=== PATIENT | male | born 1950 | race Caucasian/White ===

== ENCOUNTER 2021-10-07 06:00 | Outpatient (RCR) | payer OTHER, SELFPAY | END 2021-10-27 23:59 | disposition home or self-care (01) | LOC: SPT 06:00 | PROVIDERS: Family Provider Internal Medicine; PCP Internal Medicine; Referring Provider Family Medicine; Visit Provider Family Medicine | DX: M17.11 Unilateral primary osteoarthritis, right knee (principal) | CPT/HCPCS: 97110; 97161; G0283 ==

== ENCOUNTER 2021-10-28 06:00 | Outpatient (RCR) | payer OTHER, SELFPAY | END 2021-11-27 23:59 | disposition home or self-care (01) | LOC: SPT 06:00 | PROVIDERS: PCP Internal Medicine; Referring Provider Family Medicine; Visit Provider Family Medicine | DX: M17.11 Unilateral primary osteoarthritis, right knee (principal) | CPT/HCPCS: 97110; 97161; G0283 ==

== ENCOUNTER → 2023-02-07 15:13 | Outpatient (BNVA) | payer OTHER, SELFPAY | PROVIDERS: PCP Internal Medicine; Referring Provider Family Medicine; Visit Provider Internal Medicine Cardiovascular Disease | DX: R07.89 Other chest pain (principal); R06.02 Shortness of breath; E11.9 Type 2 diabetes mellitus without complications; Z79.84 Long term (current) use of oral hypoglycemic drugs; E78.5 Hyperlipidemia, unspecified; I10 Essential (primary) hypertension; G47.33 Obstructive sleep apnea (adult) (pediatric); Z87.891 Personal history of nicotine dependence | CPT/HCPCS: 99204 ==

== ENCOUNTER 2023-02-26 08:49 | Outpatient (CLI) | payer OTHER, SELFPAY ==
[2023-02-26 09:34] VITALS: BMI 40.4
--- NOTE | 2023-02-26 09:37 | ECG_ITS ---
[facility] Test Date: 2023-02-26 Pat Name: Mercedez Mcfarlane Department: Room: Gender: Male Bus Attendant: Lana Anne : 1950 Requested By: Alvaro Brown Order Number: [id number] Cj MD: Mike Casper M.D. Interpretive Statements NAME OF STUDY: EXERCISE SESTAMIBI STRESS TEST INDICATION: [Chest Pain; Shortness of Breath, ] EXERCISE DATA: The patient was exercised by Solomon protocol. Baseline heart rate was 61 beats per minute. Baseline blood pressure was 128/77 millimeters of mercury. Target heart rate was 125 beats per minute. Maximum heart rate achieved was 126 which was 100% of the target heart rate. Maximum blood pressure was 201/114 millimeters of mercury. Total exercise time was 5 minutes 49 seconds. Maximum METs achieved was 7. The reason for ending the test was maximal effort achieved. The patient complained of shortness of breath during the stress test, which then resolved at the end of the test. ELECTROCARDIOGRAM: BASELINE: Showed sinus rhythm, normal axis, no significant ST-T changes at the baseline noted. [] EXERCISE: At the peak exercise level, [] No significant ST-T changes suggestive of ischemia noted. [] RECOVERY: During the recovery period, heart rate dropped appropriately. No significant ST-T changes in the recovery suggestive of ischemia noted. [] CONCLUSION: 1. Exercise capacity is fair. 2. Heart rate response was appropriate. 3. Blood pressure response was hypertensive. 4. Symptoms not suggestive of ischemia. 5. Electrocardiogram portion of the stress test was not suggestive of ischemia. 6. Nuclear scan will be documented separately. Electronically Signed On 03-03-2023 20:52:29 CDT by Mike Casper M.D. [id number]
--- NOTE | 2023-02-26 09:37 | NMCV_ITS ---
NM arpit perf SPECT r/s* [id number] Mercedez Mcfarlane Age: 72 Gender: M : 1950 Exam Date: 02/26/2023 09:37 Ordering Phys: Alvaro Brown MD ([email or web address]) Technologist: KALLI Bar Exam Location: [facility] Indications: CORONARY ANGIOPLASTY STATUS STRESS TEST Please see separate stress test report in [facility] for full findings IMAGE PROTOCOL Rest/Stress 1 Exercise Day Radiopharmaceutical Dose (mCi) Administration Site Administered by Rest: Tc-99m 7.7 IV KALLI Bar Sestamibi Stress:Tc-99m 33.0 IV KALLI Worthy Sestamibi Rest: 26-Feb-2023 60 Discovery 630 Stress: 26-Feb-2023 15 Discovery 630 Radiopharmaceutical was injected at 85 % maximum heart rate. Supine position only as patient was unable to lay prone. SPECT RESULTS Technical Quality: Excellent Raw Data Analysis: Normal Image Corrections: No attenuation or motion correction applied Summed Stress Score: 0 Summed Rest Score: 0 Summed Difference Score: 0 PERFUSION FINDINGS SPECT images demonstrate homogeneous tracer distribution throughout the myocardium. FUNCTIONAL RESULTS (calculated via Gated SPECT) Stress Image LV EF (%): 74 Stress EDV (mL):121 TID: 0.86 Stress ESV (mL):31 FUNCTIONAL FINDINGS: There is normal left ventricular systolic function. IMPRESSIONS 1. Normal myocardial perfusion imaging with no evidence of ischemia 2. LV systolic function is normal Mike Casper MD (Electronically Signed) Final Date: 26 February 2023 17:57 S
[2023-02-26 11:20] VITALS: BP 152/81; PULSE 83
== END 2023-02-26 08:50 | disposition home or self-care (01) ==
LOC: CDL 08:51
PROVIDERS: PCP Family Medicine; Visit Provider Internal Medicine Cardiovascular Disease
DX: R07.9 Chest pain, unspecified (principal); R06.02 Shortness of breath; Z98.61 Coronary angioplasty status
CPT/HCPCS: 36415; 78452; 93017; A9500

== ENCOUNTER 2023-03-01 09:40 | Outpatient (CLI) | payer OTHER, SELFPAY ==
--- NOTE | 2023-03-01 10:15 | USCV_ITS ---
Mercedez Mcfarlane Age: 72 Gender: M : 1950 Exam Date: 03/01/2023 09:57 Ordering Phys: Alvaro Brown MD ([email or web address]) Technologist: CHARITY Exam Location: [facility] [place] Indication: SMITH BP: 134 / 86 HR: 66 Rhythm: Sinus Technical Quality: Adequate MEASUREMENTS (Male / Female) Normal Values 2D ECHO LV Diastolic Diameter PLAX 5.2 cm 4.2 - 5.9 / 3.9 - 5.3 cm LV Systolic Diameter PLAX 2.3 cm IVS Diastolic Thickness 1.6 cm 0.6 - 1.0 / 0.6 - 0.9 cm IVS Systolic Thickness 2.2 cm LVPW Diastolic Thickness 1.2 cm 0.6 - 1.0 / 0.6 - 0.9 cm LVPW Systolic Thickness 2.1 cm LVOT Diameter 2.3 cm LV Ejection Fraction 2D Teich 85.6 % LV Ejection Fraction MOD 2C 53.3 % LV Ejection Fraction 2C AL 55.2 % LA Diameter 3.0 cm LA Width 3.3 cm LA Height 5.8 cm RA Width 4.3 cm RA Height 5.0 cm Aorta at Sinotubular Diameter 3.4 cm IVC Diameter 2.5 cm M-MODE Aortic Annulus Diameter 4.0 cm LA Ao Ratio MM 0.8 MV E Point Septal Separation 0.7 cm DOPPLER AV Peak Velocity 153.0 cm/s LVOT Peak Velocity 128.0 cm/s AV Area Cont Eq vti 3.5 cm squared AV Area Cont Eq pk 3.3 cm squared MV Peak Velocity 93.0 cm/s MV Area PHT 4.1 cm squared Mitral E to A Ratio 0.8 MV E' Velocity 37.0 cm/s Mitral E to MV E' Ratio 8.0 Mitral E to LV E' Lateral Ratio 9.1 Mitral E to LV E' Septal Ratio 7.2 TR Peak Velocity 89.3 cm/s TR Peak Gradient 3.2 mmHg Right Atrial Pressure 5.0 mmHg Pulmonary Artery Systolic Pressu 8.2 mmHg PV Peak Velocity 107.0 cm/s RV Acceleration Time 0.1 s RV Ejection Time 0.3 s RV AcT/ET 0.3 FINDINGS Left Ventricle Normal left ventricular size and systolic function, EF 63 %. No regional wall motion abnormalities. Grade I/IV diastolic dysfunction (abnormal relaxation filling pattern), normal to mildly elevated filling pressures. Right Ventricle Normal right ventricular systolic function. Mildly increased right ventricular size. Right Atrium Mildly increased right atrial size. Left Atrium The left atrium is normal in size. Mitral Valve No gross abnormalities noted Aortic Valve Thickened aortic valve. Tricuspid Valve Trace tricuspid valve regurgitation. Pulmonic Valve Pulmonic valve not well visualized. Pericardium Normal pericardium without effusion. Aorta Normal ascending aorta dimension. IVC Inferior vena cava not visualized. CONCLUSIONS Normal left ventricular size and systolic function, EF 63 %. No regional wall motion abnormalities. Grade I/IV diastolic dysfunction (abnormal relaxation filling pattern), normal to mildly elevated filling pressures. Mildly increased right atrial size. Normal right ventricular systolic function. Mildly increased right ventricular size. Trace tricuspid valve regurgitation. Estimated pulmonary artery peak systolic pressure within normal limit There is no pericardial effusion. Dr Alvaro Brown MD FACC (Electronically Signed) Final Date: 05 March 2023 09:19 S
== END 2023-03-01 09:41 | disposition home or self-care (01) ==
PROVIDERS: PCP Family Medicine; Visit Provider Internal Medicine Cardiovascular Disease
DX: R07.9 Chest pain, unspecified (principal); R06.02 Shortness of breath; I51.89 Other ill-defined heart diseases; I51.7 Cardiomegaly
CPT/HCPCS: 93306

== ENCOUNTER → 2023-05-02 13:31 | Outpatient (BNVA) | payer OTHER, SELFPAY | PROVIDERS: PCP Family Medicine; Visit Provider Nurse Practitioner Family | DX: I10 Essential (primary) hypertension (principal) | CPT/HCPCS: 99213 ==

== ENCOUNTER 2023-05-11 07:57 | Outpatient (CLI) | payer OTHER, SELFPAY | END 2023-05-11 07:58 | disposition home or self-care (01) | LOC: RT 07:58 | PROVIDERS: PCP Family Medicine; Visit Provider Family Medicine | DX: R06.02 Shortness of breath (principal); R06.09 Other forms of dyspnea; Z22.7 Latent tuberculosis | CPT/HCPCS: 94010; 94726; 94729 ==

== ENCOUNTER 2023-07-31 20:00 | Outpatient (CLI) | payer OTHER, SELFPAY | END 2023-07-31 20:01 | disposition home or self-care (01) | LOC: SLEEP 08-01 04:55 | PROVIDERS: PCP Family Medicine; Visit Provider Family Medicine | DX: G47.33 Obstructive sleep apnea (adult) (pediatric) (principal) | CPT/HCPCS: 95811 ==

== ENCOUNTER → 2023-10-29 10:54 | Outpatient (BNVA) | payer OTHER, SELFPAY | PROVIDERS: PCP Family Medicine; Visit Provider Internal Medicine Cardiovascular Disease | DX: R07.89 Other chest pain (principal); E11.9 Type 2 diabetes mellitus without complications; I10 Essential (primary) hypertension; E78.5 Hyperlipidemia, unspecified; Z87.891 Personal history of nicotine dependence; Z79.84 Long term (current) use of oral hypoglycemic drugs | CPT/HCPCS: 99213 ==

== ENCOUNTER 2025-01-19 19:56 | Outpatient (CLI) | payer OTHER, SELFPAY | END 2025-01-19 19:57 | disposition home or self-care (01) | LOC: SLEEP 19:58 | PROVIDERS: PCP Family Medicine; Visit Provider Family Medicine | DX: G47.33 Obstructive sleep apnea (adult) (pediatric) (principal) | CPT/HCPCS: 95811 ==